=== PATIENT | male | born 1995 | race Caucasian/White ===

== ENCOUNTER 2017-12-17 11:43 | Emergency (ER) | payer OTHER ==
[~2017-12-17] VITALS: Ht 188 cm; Wt 72.8 kg
[~2017-12-17 11:43] MED LIST: ACYC-113 PO; ACYC5CRE2 TP; ALPR0.25 PO; AMIT75TA PO; Albuterol Sulfate INLINE; BISA10SU65 PR; BUPR1FIL3 PO; BUSP5TAB2 PO; ENOX30SY4 SQ; GABA100C PO; GLYC1TAB9 PO; LABE100T26 NG; LIDOCAINE HCL ENDO; METH10OR3 NG; Metoprolol Tartrate IVPush; Ondansetron IVPB; PANT40VI IV; PHEN177S47 MM; PROM118S4 PO; Tizanidine Hcl PO
[2017-12-17] MEDS ORDERED: SODIUM CHLORIDE FLUSH 10ML SYR IVF ONE (13:00)
[2017-12-17 13:29] LABS: BASOPHILS # (AUTO) 0.04 x10^3/uL (0-0.1); BASOPHILS % (AUTO) 0 % (0-1); EOSINOPHILS # (AUTO) 0.06 x10^3/uL (0-0.4); EOSINOPHILS % (AUTO) 1 % (1-7); LYMPHOCYTES # (AUTO) 0.95 x10^3/uL (1-3.4); LYMPHOCYTES % (AUTO) 10 % (22-44); MD NO; MEAN CORPUSCULAR HEMOGLOBIN 30.5 pg (27.5-34.5); MEAN CORPUSCULAR HGB CONC 34.1 g/dL (33.2-36.2); MEAN CORPUSCULAR VOLUME 89.5 fL (81-97); MEAN PLATELET VOLUME 9.7 fL (7.4-10.4); MONOCYTES # (AUTO) 0.51 x10^3/uL (0.2-0.8); MONOCYTES % (AUTO) 5 % (2-9); NEUTROPHILS % (AUTO) 84 % (42-75); PLATELET COUNT 170 x10^3/uL (130-400); RED BLOOD COUNT 5.12 x10^6/uL (4.38-5.82); RED CELL DISTRIBUTION WIDTH 13.2 % (9.4-14.8)
[2017-12-17 13:37] LABS: ALANINE AMINOTRANSFERASE 40 U/L (12-78); ALBUMIN 4.1 g/dL (3.4-5.0); ANION GAP 8 mmol/L (5-15); CALCIUM 8.9 mg/dL (8.5-10.1); CHLORIDE 105 mmol/L (98-107)
[2017-12-17 13:39] LABS: ALKALINE PHOSPHATASE 108 U/L (45-117); BILIRUBIN,TOTAL 0.4 mg/dL (0.2-1.0); TOTAL PROTEIN 7.9 g/dL (6.4-8.2)
[2017-12-17 14:56] LABS: MICROSCOPIC INDICATED
[2017-12-17 14:57] LABS: AMPHETAMINE SCREEN, URINE Negative (Negative); BARBITURATE SCREEN, URINE Negative (Negative); BENZODIAZEPINE SCREEN, URINE Negative (Negative); CANNABINOID SCREEN, URINE Negative (Negative); COCAINE SCREEN, URINE Negative (Negative); METHADONE SCREEN, URINE Negative (Negative); OPIATE SCREEN, URINE Negative (Negative)
[2017-12-17 14:58] LABS: CULTURE INDICATED? YES
[2017-12-17 16:11] VITALS: BP 126/62
== END 2017-12-17 16:13 | disposition home or self-care (01) ==
LOC: ED 13:00
DX: R56.9 Unspecified convulsions (principal); N30.00 Acute cystitis without hematuria
CPT/HCPCS: 36415; 70450; 80053; 80307; 81001; 85025; 87086; 93005; 99285